=== PATIENT | female | born 1995 | race African-American/Black ===

== ENCOUNTER 2017-09-08 21:03 | Emergency (ER) | payer OTHER ==
[~2017-09-08] VITALS: Ht 170.2 cm; Wt 106.6 kg
[2017-09-08 21:46] VITALS: TEMP 99.1
[2017-09-08 23:02] LABS: POTASSIUM 3.4 mmol/L (3.6-5.2)
[2017-09-08 23:11] LABS: PLATELET COUNT 282 K/uL (152-353)
[2017-09-09 02:06] VITALS: BP 125/73
== END 2017-09-09 02:09 | disposition home or self-care (01) ==
LOC: ED 21:03
DX: K81.9 Cholecystitis, unspecified (principal)
CPT/HCPCS: 36415; 80053; 81025; 82150; 83690; 85027; 96374; 99284; J2550; Q9963

== ENCOUNTER 2020-12-30 19:21 | Emergency (ER) | payer OTHER ==
[~2020-12-30] VITALS: Ht 170.2 cm; Wt 111.6 kg
[2020-12-30 20:33] VITALS: BP 137/83; TEMP 98.2
== END 2020-12-30 20:33 | disposition home or self-care (01) ==
LOC: ED 19:21
DX: R10.11 Right upper quadrant pain (principal); K81.9 Cholecystitis, unspecified
CPT/HCPCS: 99282